=== PATIENT | male | born 1970 | race Caucasian/White ===

== ENCOUNTER 2017-04-22 05:22 | Emergency (ER) | payer BC ==
[~2017-04-22] VITALS: Ht 170.2 cm; Wt 82.5 kg
[~2017-04-22 05:22] MED LIST: AMOX500T PO; [UNRECOGNIZED DRUG - CODE] PO
[2017-04-22 05:25] VITALS: Ht 170.2 cm; Wt 82.5 kg
[2017-04-22] MEDS ORDERED: ACETAMINOPHEN 500 MG TAB PO STA (05:43)
[2017-04-22] MEDS ORDERED: SOD CHLORIDE 0.9% 1,000 ML IV ONE (06:00)
[2017-04-22] MEDS ORDERED: IBUPROFEN 200 MG TAB PO ONE (06:00)
--- NOTE | 2017-04-22 06:21 | ERD ---
ER Documentation Chief Complaint Date/Time DATE: 04/22/17 TIME: 06:20 Chief Complaint fever/body aches since yesterday HPI Patient is a 47-year-old male who presents to the emergency department for concerns of a fever and body aches since yesterday. Patient states he was in [place] prior to the start of the symptoms. Patient reports tactile fevers and chills. Patient last took Ibuprofen at 8am yesterday. Patient does report drinking heavily. Patient denies any vomiting, abdominal pain or diarrhea. Patient denies any dysuria or flank pain. Patient does report sore throat. Patient denies any trismus, drooling or hyperextension of his neck. Patient denies any ear pain, rhinorrhea. Patient does have a dry cough. No sick contacts. +Recent travel, [place]. ROS All systems reviewed and are negative except as per history of present illness. Medications Home Meds Active Scripts Acetaminophen* (Tylophen*) 500 Mg Capsule, 2 CAP PO Q4H Y for PAIN AND OR ELEVATED TEMP, #20 CAP Prov:PRISCILLA NASH PA-C 04/22/17 Ibuprofen* (Motrin*) 600 Mg Tab, 600 MG PO Q6, #30 TAB Prov:PRISCILLA NASH PA-C 04/22/17 Amoxicillin* (Amoxicillin*) 500 Mg Cap, 500 MG PO BID for 10 Days, CAP Prov:PRISCILLA NASH PA-C 04/22/17 Amoxicillin Trihydrate (Amoxicillin) 500 Mg Tablet, 500 MG PO BID, #20 TAB Prov:MARILEE HUNTER CORN COOKER 06/26/16 Guaifenesin/Dextromethorphan (Q-Tussin Dm Syrup) 473 Ml Syrup, 10 ML PO Q8 Y for COUGH, #1 BOTTLE Prov:MARILEE HUNTER CORN COOKER 06/26/16 Allergies Allergies: Coded Allergies: No Known Drug Allergies (Verified Allergy, Unknown, 04/22/17) PMhx/Soc Medical and Surgical Hx: pt denies Medical Hx, pt denies Surgical Hx Hx Alcohol Use: Yes Hx Substance Use: No Hx Tobacco Use: Yes Smoking Status: Former smoker FmHx Family History: No diabetes Physical Exam Vitals Vital Signs Date Time Temp Pulse Resp B/P Pulse Ox O2 Delivery O2 Flow Rate FiO2 04/22/17 07:42 98.7 90 18 112/76 96 Room Air 04/22/17 05:25 104.3 118 20 130/78 96 Physical Exam GENERAL: Well-developed, well-nourished male. Appears in no acute distress. Begin full sentences. No signs of respiratory distress including abdominal retractions, nasal flaring or tripoding. HEAD: Normocephalic, atraumatic. No deformities or ecchymosis. EYE: Pupils equal, round, and reactive to light. EOMs intact. No conjunctival erythema. No eye discharge. ENT: External ear without any masses or tenderness. TM visualized bilaterally, non-erythematous, non-bulging. Nasal mucosa pink with no discharge. Oropharynx is erythematous with bilateral tonsillar swelling. Few exudates noted on the patient's upper right tonsil. No uvula deviation. No kissing tonsils. NECK: Supple. No meningismus. Normal ROM of the neck. LUNG: Clear to auscultation bilaterally. No rhonchi, wheezing, rales or coarse breath sounds. HEART: Regular rate and rhythm. No murmurs, rubs or gallops. ABDOMEN: Soft, nontender, and nondistended. Positive bowel sounds in all four quadrants. No rebound tenderness, no guarding. (-) McBurney's point tenderness. No CVA tenderness. BACK: No midline tenderness. EXTREMITES: Equal pulses bilaterally. No peripheral clubbing, cyanosis or edema. No unilateral leg swelling. NEUROLOGIC: Alert and oriented to person, place and time. Moving all four extremities. 5/5 strength in all extremities. Normal speech. Steady gait. (-) Brudzinski sign. (-) Kernig's sign. SKIN: Normal color. Warm and dry. No rashes or lesions. Result Diagram: 04/22/17 0545 04/22/17 0545 Results 24 hrs Laboratory Tests Test 04/22/17 05:45 White Blood Count 13.110^3/ul Red Blood Count 5.0410^6/ul Hemoglobin 15.2g/dl Hematocrit 45.8% Mean Corpuscular Volume 90.9fl Mean Corpuscular Hemoglobin 30.2pg Mean Corpuscular Hemoglobin Concent 33.2g/dl Red Cell Distribution Width 13.1% Platelet Count 08095^3/UL Mean Platelet Volume 8.9fl Neutrophils % 79.6% Lymphocytes % 10.0% Monocytes % 9.1% Eosinophils % 0.1% Basophils % 0.5% Nucleated Red Blood Cells % 0.0/100WBC Neutrophils # 10.510^3/ul Lymphocytes # 1.310^3/ul Monocytes # 1.210^3/ul Eosinophils # 0.010^3/ul Basophils # 0.110^3/ul Nucleated Red Blood Cells # 0.010^3/ul Sodium Level 140mmol/L Potassium Level 3.9mmol/L Chloride Level 101mmol/L Carbon Dioxide Level 24mmol/L Anion Gap 19 Blood Urea Nitrogen 9mg/dl Creatinine 1.24mg/dl Glucose Level 107mg/dl Lactic Acid Level 1.3mmol/L Calcium Level 9.4mg/dl Lipase 58U/L Current Medications Medications (Trade) Dose Ordered Sig/Louie Route PRN Reason Start Time Stop Time Status Last Admin Dose Admin Acetaminophen (Tylenol Tab) 500 mg ONCE STAT PO 04/22/17 05:43 04/22/17 05:45 DC 04/22/17 05:49 Ibuprofen 400 mg 400 mg ONCE ONCE PO 04/22/17 06:00 04/22/17 06:01 DC 04/22/17 05:49 Sodium Chloride (NS) 1,000 ml @ 1,000 mls/hr Q1H ONCE IV 04/22/17 06:00 04/22/17 06:59 DC 04/22/17 05:52 Procedures/MDM MEDICAL DECISION MAKING: This is a 47-year-old male who presents to the emergency department with a fever , body aches in the sore throat 1 day. Vital signs were reviewed. Patient was febrile was at initial presentation with 104.3 Fahrenheit temperature. Patient' s pulse was noted to be 118 bpm. Patient was given antipyretics here in the emergency department. Patient was also given fluids.. Patient's temperature was noted to be down trending. Prior discharge patient's temperature was noted to be 98.7 Fahrenheit. Patient's pulse was noted to be 90 bpm prior to discharge. Patient was not hypoxic. ENT exam revealed bilateral tonsillar erythema with a few exudates on the R tonsil. Patient had no meningeal signs. Patient's lung exam was unremarkable. Patient's abdominal exam was unremarkable. CBC showed no evidence of severe anemia. Patient was noted to have a white count of 13.1. Lactate was within normal limits. CMP showed no evidence of electrolyte abnormalities, severe acidosis, alkalosis, renal failure , or liver disease. Lipase showed no evidence of acute pancreatitis. Chest x- ray was unremarkable. Given these findings, the patient's presentation is most consistent with presumed strep pharyngitis. I have a much lower clinical concern for bacterial infections including pneumonia, meningitis, sinusitis, otitis externa, acute otitis media, epiglottitis or peritonsillar abscess. At this time, I doubt sepsis. PRESCRIPTIONS: Amoxicillin, ibuprofen, Tylenol DISCHARGE: At this time, patient is stable for discharge and outpatient management. Patient was given a copy of all blood work and imaging studies obtained today. Supportive therapies such as OTC throat lozenges, salt water gurgles, popsicles and jello discussed. I have instructed the patient to follow-up with his/her primary care physician in 1-2 days. I have instructed the patient to promptly return to the ER for any new or worsening symptoms including increased pain, swelling, fever, nausea, vomiting, weakness or difficulty breathing. The patient and/or family expressed understanding of and agreement with this plan. All questions were answered. Home care instructions were provided. Departure Diagnosis: Primary Impression: Fever Fever type: unspecified Qualified Code: R50.9 - Fever, unspecified fever cause Additional Impression: Strep pharyngitis Condition: Stable Patient Instructions: Fever Control (Adult) Referrals: [facility] Additional Instructions: Call your primary care doctor TOMORROW for an appointment during the next 1-2 days.See the doctor sooner or return here if your condition worsens before your appointment time. Take ibuprofen every 6 hours. Take Tylenol every 4 hours. Plenty of fluids. Stay hydrated. PRISCILLA NASH PA-C Apr 22, 2017 06:21
[2017-04-22 06:29] LABS: ADD SCAN DIFF NO
[2017-04-22 06:41] LABS: BASOPHIL # 0.1 10^3/ul (0.0-0.1); BASOPHILS % 0.5 % (0.0-2.0); EOSINOPHILS % 0.1 % (0.0-7.0); HEMATOCRIT 45.8 % (42.0-52.0); HEMOGLOBIN 15.2 g/dl (14.0-18.0); LYMPHOCYTES # 1.3 10^3/ul (0.8-2.9); MEAN CORPUSCULAR HEMOGLOBIN 30.2 pg (29.0-33.0); MEAN CORPUSCULAR HGB CONC 33.2 g/dl (32.0-37.0); MEAN CORPUSCULAR VOLUME 90.9 fl (82.0-101.0); MEAN PLATELET VOLUME 8.9 fl (7.4-10.4); MONOCYTE # 1.2 10^3/ul (0.3-0.9); MONOCYTES % 9.1 % (0.0-11.0); NEUTROPHIL # 10.5 10^3/ul (1.6-7.5); NEUTROPHILS % 79.6 % (39.0-77.0); PLATELET COUNT 234 10^3/UL (140-415); RED BLOOD COUNT 5.04 10^6/ul (4.70-6.10); RED CELL DISTRIBUTION WIDTH 13.1 % (11.5-14.5); WHITE BLOOD COUNT 13.1 10^3/ul (4.8-10.8)
[2017-04-22 06:57] LABS: CALCIUM 9.4 mg/dl (8.4-10.2); CREATININE 1.24 mg/dl (0.61-1.24); POTASSIUM 3.9 mmol/L (3.5-5.1)
--- NOTE | 2017-04-22 07:08 | RADRPT ---
PROCEDURE: Chest. CLINICAL INDICATION: Fever and cough. TECHNIQUE: Single frontal view of the chest was obtained. COMPARISON: None. FINDINGS: The cardiac silhouette is within normal limits. The aortic arch is unremarkable. There is no focal consolidation, vascular congestion or pleural effusion. There is no pneumothorax. IMPRESSION: No evidence for active cardiopulmonary disease. .Gerardo Red MD, MD Date Time Electronically viewed and signed by .Gerardo Red MD, on 04/22/2017 07:08 .T/
[2017-04-22] MEDS ORDERED: AMO500 PO (07:30)
[2017-04-22] MEDS ORDERED: IBUP-1542 PO (07:30)
[2017-04-22] MEDS ORDERED: ACET500C5 PO (07:34)
[2017-04-22 08:04] VITALS: BP 112/76; PULSE 89; RESP 20; TEMP 99.5
== END 2017-04-22 08:05 | disposition home or self-care (01) ==
LOC: FTE 05:22
DX: R50.9 Fever, unspecified (principal); J02.0 Streptococcal pharyngitis; Z87.891 Personal history of nicotine dependence
CPT/HCPCS: 71010; 80048; 83605; 83690; 85025; 99284; J7030

== ENCOUNTER 2018-10-21 10:35 | Emergency (ER) | payer BC ==
[~2018-10-21] VITALS: Ht 167.6 cm; Wt 81.5 kg
[~2018-10-21 10:35] MED LIST changes: +ACET500C5 PO; +AMOX500C2 PO; +IBUP-1542 PO
[2018-10-21 10:37] VITALS: BP 129/81; PULSE 80; RESP 20; Ht 167.6 cm; Wt 81.5 kg
--- NOTE | 2018-10-21 11:10 | ERD ---
ER Documentation Chief Complaint Chief Complaint cough/congestion x 2 days; sore throat x 3 days. cold symptoms HPI 48-year-old male, previously healthy, presents to the emergency department, complaining of 3 days with upper respiratory symptoms including sore throat, cough and congestion. During the last 2 days the symptoms have been getting worse, associated with subjective fever and general malaise. No medications taken at this time. ROS All systems reviewed and are negative except as per history of present illness. Medications Home Meds Active Scripts Guaifenesin-Codeine Phosphate* (Guaifenesin* AC Cough Syrup) 473 Ml Liquid, 5 ML PO QHS PRN for COUGH, #60 ML Prov:JL CINTRON MD 10/21/18 Ibuprofen* (Motrin*) 400 Mg Tab, 400 MG PO Q8, #12 TAB Prov:JL CINTRON MD 10/21/18 Albuterol Sulfate* (Proair HFA*) 8.5 Gm Hfa.aer.ad, 2 PUFF INH Q4H PRN for WHEEZING AND SOB, #1 INHALER Prov:JL CINTRON MD 10/21/18 Amoxicillin* (Amoxicillin*) 500 Mg Cap, 500 MG PO TID for 7 Days, CAP Prov:JL CINTRON MD 10/21/18 Acetaminophen* (Tylophen*) 500 Mg Capsule, 2 CAP PO Q4H PRN for PAIN AND OR ELEVATED TEMP, #20 CAP Prov:PRISCILLA NASH PA-C 04/22/17 Ibuprofen* (Motrin*) 600 Mg Tab, 600 MG PO Q6, #30 TAB Prov:PRISCILLA NASH PA-C 04/22/17 Amoxicillin* (Amoxicillin*) 500 Mg Cap, 500 MG PO BID for 10 Days, CAP Prov:PRISCILLA NASHC 04/22/17 Amoxicillin Trihydrate (Amoxicillin) 500 Mg Tablet, 500 MG PO BID, #20 TAB Prov:MARILEE HUNTER [employer] COORDINATOR 06/26/16 Guaifenesin/Dextromethorphan (Q-Tussin Dm Syrup) 473 Ml Syrup, 10 ML PO Q8 PRN for COUGH, #1 BOTTLE Prov:MARILEE HUNTER [employer] SERVICES COORDINATOR 06/26/16 Allergies Allergies: Coded Allergies: No Known Drug Allergies (Verified Allergy, Unknown, 04/22/17) PMhx/Soc Medical and Surgical Hx: pt denies Medical Hx, pt denies Surgical Hx Hx Alcohol Use: Yes (socially) Hx Substance Use: No Hx Tobacco Use: No Smoking Status: Never smoker Physical Exam Vitals Vital Signs Date Temp Pulse Resp B/P (MAP) Pulse Ox O2 O2 Flow FiO2 Time Delivery Rate 10/21/18 99.1 80 20 129/81 97 10:37 (97) Physical Exam Const: No acute distress Head: Atraumatic Eyes: Normal Conjunctiva ENT: Normal External Ears, Nose and Mouth. Neck: Full range of motion. No meningismus. Resp: Clear to auscultation bilaterally Cardio: Regular rate and rhythm, no murmurs Abd: Soft, non tender, non distended. Normal bowel sounds Skin: No petechiae or rashes Back: No midline or flank tenderness Ext: No cyanosis, or edema Neur: Awake and alert Psych: Normal Mood and Affect Results 24 hrs Current Medications Medications Dose Sig/Louie Start Time Status Last (Trade) Ordered Route PRN Stop Time Admin Dose Reason Admin 650 mg ONCE ONCE 10/21/18 DC 10/21/18 Acetaminophen PO 11:30 10/21/18 11:18 (Tylenol 11:31 Tab) Procedures/MDM Vital signs stable, no respiratory distress. Differential diagnosis include but not limited to: Respiratory infection bacterial/viral/fungal. Croup, bronchiolitis, pneumonitis, allergies, GERD. Less likely foreign body aspiration, cardiac related. Physical examination and clinical presentation consistent most likely with viral infection with early superimposed bacterial infection. During the ED course the patient remained stable, no new complaints. Treatment options and clinical impression discussed with mother who agrees with management. The patient is stable to be treated outpatient and will be discharged home with a Rx for amoxicillin, pro-air and ibuprofen. Some side effects of prescribed medications (headache, rash, nausea, vomiting, diarrhea, interactions with other medications) were reviewed. The patient needs to follow up with the primary care provider in the next 48h. If symptoms persist, worsen or new symptoms develop, then patient should return to the ED immediately. Disclaimer: Inadvertent spelling and grammatical errors are likely due to EHR/d ictation software use and do not reflect on the overall quality of patient care. Also, please note that the electronic time recorded on this note does not necessarily reflect the actual time of the patient encounter. Departure Diagnosis: Primary Impression: Cough Condition: Stable Additional Instructions: Thank you very much for allowing us to participate in your care. Your health and safety is our top priority at [facility]. Call your primary care doctor TOMORROW for an appointment during the next 2-4 days and bring all the information and medications prescribed. Have prescriptions filled and follow precisely the directions on the label. If the symptoms get worse and your provider is unavailable, return to the Emergency Department immediately. JL CINTRON MD Oct 21, 2018 11:10
[2018-10-21] MEDS ORDERED: IBUP-1561 PO (11:20)
[2018-10-21] MEDS ORDERED: GUAI473L22 PO (11:20)
[2018-10-21] MEDS ORDERED: AMOX500C2 PO (11:20)
[2018-10-21] MEDS ORDERED: ALBU8.5H8 INH (11:20)
[2018-10-21] MEDS ORDERED: ACETAMINOPHEN 325 MG TAB PO ONE (11:30)
== END 2018-10-21 11:26 | disposition home or self-care (01) ==
LOC: FTE 10:35
DX: R05 Cough (principal)
CPT/HCPCS: 99283